=== PATIENT | female | born 1995 | race Caucasian/White ===

== ENCOUNTER 2017-10-02 14:47 | Emergency (ER) | payer MEDICAID ==
[2017-10-02 15:27] VITALS: BP 00/00
--- NOTE | 2017-10-02 16:16 | RAD ---
Indication: Aspiration. 2 views of the chest including dual energy PA views demonstrate no mediastinal shift. Heart is of normal size and configuration. Lung bonilla are clear. IMPRESSION: No active cardiopulmonary disease is noted.
--- NOTE | 2017-10-02 16:21 | UC ---
Respiratory Complaint HPI - HPI Summary HPI Summary: 22 yo female with autism brought in due to concerns of possible aspiration ate something larger than she should have no gagging or choking no cough - History of Current Complaint Chief Complaint: UCRespiratory Stated Complaint: POSSIBLE ASPIRATION Time Seen by Provider: 10/02/17 16:02 Hx Obtained From: Patient Hx Last Menstrual Period: 09/23/17 Onset/Duration: Sudden Onset Timing: Constant Pain Intensity: 0 Pain Scale Used: 0-10 Numeric - Allergies/Home Medications Allergies/Adverse Reactions: Allergies Allergy/AdvReac Type Severity Reaction Status Date / Time MS Amoxicillin Allergy Rash Verified 10/02/17 15:09 [From Augmentin] MS Clavulanic Acid Allergy Rash Verified 10/02/17 15:09 [From Augmentin] MS Codeine [Codeine] Allergy Rash Verified 10/02/17 15:09 MS Penicillins [Penicillins] Allergy Rash Verified 10/02/17 15:09 PMH/Surg Hx/FS Hx/Imm Hx Previously Healthy: Yes - Surgical History Surgical History: Yes Surgery Procedure, Year, and Place: lung cyst; tubes in ears; dental - Family History Known Family History: Positive: Unknown - unable to give history - Social History Alcohol Use: None Substance Use Type: None Smoking Status (MU): Never Smoked Tobacco Review of Systems Constitutional: Negative Skin: Negative Eyes: Negative ENT: Negative Respiratory: Negative Cardiovascular: Negative Gastrointestinal: Negative Genitourinary: Negative Motor: Negative Neurovascular: Negative Musculoskeletal: Negative Neurological: Negative Psychological: Negative Is Patient Immunocompromised?: No All Other Systems Reviewed And Are Negative: Yes Physical Exam Triage Information Reviewed: Yes Appearance: Well-Appearing - dancing in room, No Pain Distress, Well-Nourished Vital Signs: Initial Vital Signs Temp 0 F 10/02/17 15:12 Pulse 87 10/02/17 15:12 Resp 18 10/02/17 15:12 BP 00/00 10/02/17 15:12 Pulse Ox 97 10/02/17 15:12 Vital Signs Reviewed: Yes Eyes: Positive: Conjunctiva Clear ENT: Positive: Hearing grossly normal. Negative: Nasal congestion, Nasal drainage, Trismus, Muffled voice, Hoarse voice Neck: Positive: Supple, Nontender, No Lymphadenopathy Respiratory: Positive: Lungs clear, Normal breath sounds, No respiratory distress Cardiovascular: Positive: RRR, No Murmur Musculoskeletal: Positive: ROM Intact, No Edema Neurological: Positive: Alert Psychological Exam: Normal Skin Exam: Normal UC Diagnostic Evaluation - Laboratory O2 Sat by Pulse Oximetry: 97 - normal/not hypoxic - Radiology Xray Interpretation: No Acute Changes Radiology Interpretation Completed By: Radiologist Respiratory Course/Dx - Differential Dx/Diagnosis Provider Diagnoses: normal lung exam. no clinical suspicion of aspiration Discharge - Discharge Plan Condition: Stable Disposition: HOME Referrals: Savanna Casas MD [Primary Care Provider] - If Needed Additional Instructions: normal chest XR and pulse ox
== END 2017-10-02 16:28 | disposition home or self-care (01) ==
LOC: UCCORT 14:47
DX: Z03.89 Encounter for observation for other suspected diseases and conditions ruled out (principal); F84.0 Autistic disorder; Z88.5 Allergy status to narcotic agent; Z88.0 Allergy status to penicillin; Z88.8 Allergy status to other drugs, medicaments and biological substances
CPT/HCPCS: 71046; 99212; G0463

== ENCOUNTER 2019-08-29 10:44 | Day surgery (SDC) | payer MEDICAID ==
[~2019-08-29 10:44] MED LIST: Buffered Lidocaine 1% SYRIN* 1 ML/SYRINGE INTRADERM ONE; Lactated Ringers 1000 ML Bag* 1,000 ML IV SCH
[2019-08-29] MEDS ORDERED: Buffered Lidocaine 1% SYRIN* 1 ML/SYRINGE INTRADERM ONE (11:22)
[2019-08-29] MEDS ORDERED: ceFAZolin 2 GM PREMIX in ORs 2 GM/50 ML BAG ONE ×2 (11:22)
[2019-08-29] MEDS ORDERED: Lidocaine 2% PF * 5 ML VIAL ONE ×2 (11:27)
[2019-08-29] MEDS ORDERED: Midazolam* 1 MG/ML 2 ML VIAL (2 MG) ONE ×2 (11:27)
[2019-08-29] MEDS ORDERED: Propofol* 10 MG/ML 20 ML BTL ONE ×2 (11:27)
[2019-08-29] MEDS ORDERED: fentaNYL* 50 MCG/ML 5 ML VIAL (250 MCG VIAL) ONE ×2 (11:27)
[2019-08-29] MEDS ORDERED: Rocuronium* 10 MG/ML VIAL ONE ×2 (11:27)
[2019-08-29] MEDS ORDERED: LORazepam TAB(*) 1 MG SL ONE (11:37)
[2019-08-29] MEDS ORDERED: ROPIVACAINE 5 MG/ML 30 ML BTL (0.5%) ONE ×2 (12:34)
[2019-08-29] MEDS ORDERED: Bupivacaine 0.25% SDV PF* 10 ML VIAL INJ ONE ×2 (12:46)
[2019-08-29] MEDS ORDERED: Ketorolac INJ* 30 MG/ML 1 ML VIAL IV PRN (12:49)
[2019-08-29] MEDS ORDERED: PROCHLORPERAZINE INJ 5 MG/ML 2 ML VIAL IV PRN (12:49)
[2019-08-29] MEDS ORDERED: diPHENhydraMINE IV* 50 MG/ML 1 ml VIAL (BENADRYL) IV PRN (12:49)
[2019-08-29] MEDS ORDERED: Acetaminophen TAB* 325 MG PO PRN (12:49)
[2019-08-29] MEDS ORDERED: Naloxone* 0.4 MG/ML 1 ML VIAL IV PRN (12:49)
[2019-08-29] MEDS ORDERED: Succinylcholine* 20 MG/ML 10 ML VIAL ONE ×2 (13:38)
[2019-08-29] MEDS ORDERED: EPHEDrine (Pressors)* 50 MG/ML VIAL ONE ×2 (13:38)
[2019-08-29] MEDS ORDERED: Dexamethasone IV* 4 MG/ML 1 ML (4 MG) ONE ×2 (13:49)
[2019-08-29] MEDS ORDERED: PROCHLORPERAZINE INJ 5 MG/ML 2 ML VIAL ONE ×2 (17:09)
[2019-08-29 19:11] VITALS: BP 112/84
--- NOTE | 2019-08-30 03:07 | OP ---
DATE OF OPERATION: 08/29/19 - [facility] DATE OF : 89 SURGEON: Nahun Up MD MATTING PRESS TENDER: MARILU Elizabeth. An assistant men's soccer coach was needed for the entirety of the procedure to aid in positioning of the arm and retraction. ANESTHESIOLOGIST: Dr. Kiser followed by Dr. Morales. ANESTHESIA: Block plus general. PRE-OP DIAGNOSIS: Right proximal humerus comminuted surgical neck fracture. POST-OP DIAGNOSIS: Right proximal humerus comminuted surgical neck fracture. OPERATIVE PROCEDURE: Open reduction and internal fixation of the right proximal humerus surgical neck comminuted fracture. ESTIMATED BLOOD LOSS: 50 mL. COMPLICATIONS: None. INDICATIONS: Ms. Washington has autism. She is nonverbal. She is very displaced in the anterior translate and the angulated fracture. I talked to the family about nonsurgical treatment. Together, we decided that we would like to line up the bone a bit better. I talked to them about open reduction internal fixation and what that entails. They would like to proceed. They understand there is risks associated with this including risk of screw cut out, hardware failure, of nonunion, of infection, of neurovascular injury. FINDINGS: See above and below. DESCRIPTION OF PROCEDURE: Ms. Washington was seen in the preoperative holding area. The correct side, site, and procedure were identified. Consent was obtained from her mother. We came back to the operating room. She was positioned in the lazy beach chair position with a bump between the shoulder blades. The arm was prescrubbed and then prepped and draped in the usual fashion. A time-out was performed. I went ahead and made a longitudinal incision starting just lateral to the coracoid process and coming down just onto the lateral border of the biceps. Dissection was carried down. The deltopectoral fascia was opened up. The cephalic artery was retracted laterally. As that is the direction I wanted to go, it was preserved throughout the case. I the interval between the pectoralis major and the deltoid that took me down to the proximal humerus. The fracture was encountered. The shaft was translated anteriorly. The biceps tendon was identified and dissection was carried lateral. I abducted the arm, I put traction. I was able to get the calcar piece back medial to the shaft, get the shaft tucked in. There was a lot of comminution and so I just went ahead and impacted the shaft up into the humeral head. Laterally, the fracture stayed very proximal. The tuberosity did not look involved. I went ahead and released just the anterior portion of the deltoid tendon and then I sewed two #2 FiberWires up into the rotator cuff tendon through the supraspinatus tendon. After I had things prepared, I brought in my [employer] proximal humerus locking plate that was positioned into place and pinned into place. I placed one screw in the oblong hole. I brought in C-arm fluoroscopy. I did not really like the position of the plate, it was just too distal. I was not really getting any fixation in the head. I placed the K-wire in the calcar screw position and the plate was just too distal. I was not getting either calcar screw up into the humeral head. I would have been extremely concerned about loss of fixation and varus collapse. I therefore removed the screws. I went ahead and repositioned the plate moving it a little bit more distal. I re-pinned it back into place. I placed another screw in the oblong hole. I pinned it proximally. I put my # 2 FiberWires through the K- wire holes on the distal aspect of the plate. I then brought in the C-arm fluoroscopy. I re-did the calcar pin. Everything was looking much better this time around. The plate was positioned as far distal as possible while still being able to get the calcar screws in place. I went ahead and then filled all of the locking screws distally. I placed both calcar screws. I filled the 2 proximal holes with 2.5 cortical screws. The #2 FiberWires were tied off over the plate. At this point, final fluoroscopic imaging was obtained. There was good correction of the varus deformity. The translation and angulation had all been corrected. The fixation was very stable. The wound was copiously irrigated out. The deltopectoral fascia was closed with 2-0 Vicryl sutures, subcutaneous tissue was reapproximated with 2-0 Vicryl suture, skin was closed with oliver. No additional local was placed due to the block. Soft dressings were applied and she was taken to the recovery room in stable condition. Arm was placed in a sling. [id number]/[facility] #: [id number] [facility] MEDICAL CENTERMichelle
== END 2019-08-29 18:26 | disposition home or self-care (01) ==
LOC: OR 10:44
PROVIDERS: ATTEND Orthopaedic Surgery Hand Surgery
DX: S42.221A 2-part displaced fracture of surgical neck of right humerus, initial encounter for closed fracture (principal); F84.0 Autistic disorder; M25.511 Pain in right shoulder; K21.9 Gastro-esophageal reflux disease without esophagitis; X58.XXXA Exposure to other specified factors, initial encounter; Y92.9 Unspecified place or not applicable; Z88.1 Allergy status to other antibiotic agents; Z88.5 Allergy status to narcotic agent; Z88.0 Allergy status to penicillin
CPT/HCPCS: 76000; 81025; C1713; C1776; J0330; J0690; J0780; J1100; J2250; J2704; J2795; J3010; J3490